=== PATIENT | female | born 1995 | race African-American/Black ===

== ENCOUNTER 2023-11-04 05:23 | Emergency (ER) | payer BC ==
[~2023-11-04] VITALS: Ht 162.6 cm; Wt 70.0 kg
[2023-11-04 06:16] VITALS: PULSE 123; RESP 20; O2SAT 94
[2023-11-04] MEDS: ALBUTEROL SULFATE 2.5 MG/0.5 ML NEB SOLUTION NEB ONE (06:16)
[2023-11-04] MEDS: IPRATROPIUM BROMIDE 0.5 MG/2.5 ML NEB SOLUTION NEB ONE (06:16)
[2023-11-04 06:21] LABS: INFLUENZA A-RTPCR,COMBO NEGATIVE (NEGATIVE); INFLUENZA B-RTPCR,COMBO NEGATIVE (NEGATIVE); RESPIRATORY SYNCYTIAL VRS-PCR NEGATIVE (NEGATIVE); SARS COVID19 RTPCR, COMBO NEGATIVE (NEGATIVE)
[2023-11-04] MEDS: ONDANSETRON HCL 4 MG/2 ML VIAL IVP ONE (06:29)
[2023-11-04] MEDS: MethylPREDNISolone SOD SUCC 125 MG/2 ML VIAL IVP ONE (06:30)
[2023-11-04] MEDS: KETOROLAC TROMETHAMINE 30 MG/ML VIAL IVP ONE (06:30)
[2023-11-04] MEDS: SODIUM CHLORIDE 0.9% 1,000 ML IV ONE (06:30)
[2023-11-04 06:31] VITALS: PULSE 118; RESP 20; O2SAT 99
[2023-11-04 06:32] LABS: BASOPHILS % (AUTO) 0.2 % (0.0-2.0); EOSINOPHILS % (AUTO) 1.4 % (1.0-6.0); HEMATOCRIT 35.4 % (36-46); HEMOGLOBIN 11.9 g/dL (12.0-16.0); LYMPHOCYTES # (AUTO) 0.6 K/uL (1.0-4.8); LYMPHOCYTES % (AUTO) 4.4 % (22.0-44.0); MEAN CORPUSCULAR HEMOGLOBIN 30.6 pg (26.0-34.0); MEAN CORPUSCULAR HGB CONC 33.7 G/dL (31.0-37.0); MEAN CORPUSCULAR VOLUME 91 fL (80-100); MONOCYTES # (AUTO) 0.8 K/uL (0.1-1.0); MONOCYTES % (AUTO) 6.1 % (2.0-9.0); PLATELET COUNT (AUTO) 261 K/uL (150-450); RED CELL DISTRIBUTION WIDTH 14.9 % (11.5-14.5); WHITE BLOOD COUNT (AUTO) 12.5 K/uL (4.5-11.0)
[2023-11-04 06:42] LABS: ANION GAP 15 mmol/L (8-16); CALCIUM, TOTAL 9.2 mg/dL (8.8-10.5); CARBON DIOXIDE 22 mmol/L (22-29); CHLORIDE 102 mmol/L (98-107); CREATININE 1.02 mg/dL (0.60-1.30); GLOMERULAR FILTR. RATE CALC > 60 mL/min (>60); GLUCOSE,RANDOM 100 mg/dL (70-110); POTASSIUM 3.8 mmol/L (3.5-5.1); SODIUM SERUM 139 mmol/L (136-145); UREA NITROGEN, BLOOD 11 mg/dL (7-18)
[2023-11-04 06:51] LABS: TROPONIN I-HIGH SENSITIVITY Less Than 4 ng/L (<51)
[2023-11-04 06:54] LABS: NEUTROPHILS % (AUTO) 87.9 % (40.0-70.0)
[2023-11-04 07:07] LABS: ALANINE AMINOTRANSFERASE 12 U/L (12-78); ALBUMIN 3.9 g/dL (3.4-5.0); ALKALINE PHOSPHATASE 63 U/L (46-116); ASPARTATE AMINOTRANSFERASE 24 U/L (15-37); BILIRUBIN,TOTAL 1.2 mg/dL (0.1-1.0); CREATINE KINASE, TOTAL ONLY 300 U/L (26-192); TOTAL PROTEIN, SERUM 7.9 g/dL (6.4-8.2)
[2023-11-04 08:27] LABS: B-TYPE NATRIURETIC PEPTIDE 8 pg/mL (0-100)
[2023-11-04 08:40] VITALS: BP 117/77; TEMP 98.2
[2023-11-04] MEDS ORDERED: PRED-554 PO (08:40)
[2023-11-04] MEDS: ALBUTEROL SULFATE HFA 90 MCG/PUFF 8 GM INHALER IH ONE (08:51)
[2023-11-04 08:52] VITALS: PULSE 96; RESP 18; O2SAT 96
== END 2023-11-04 09:10 | disposition home or self-care (01) ==
LOC: EMS 05:25
DX: J45.909 Unspecified asthma, uncomplicated (principal); Z20.822 Contact with and (suspected) exposure to COVID-19
CPT/HCPCS: 80053; 82550; 83880; 84484; 84703; 85025; 36415; 94640; 71045; 99285; 93005; 96361; 96374; 96375; 0241U; J3535; J1885; J2930; J2405; J7030; J7613

== ENCOUNTER 2023-11-18 21:22 | Emergency (ER) | payer SELFPAY ==
[~2023-11-18] VITALS: Ht 157.5 cm; Wt 59.1 kg
[~2023-11-18 21:22] MED LIST: PRED-554 PO
[2023-11-18] MEDS ORDERED: ALBU18HF12 PO (21:37)
[2023-11-18] MEDS ORDERED: MONT-40 PO (21:37)
[2023-11-18 22:32] VITALS: PULSE 93; RESP 18; O2SAT 98
[2023-11-18] MEDS: ALBUTEROL SULFATE 2.5 MG/0.5 ML 5 ML NEB SOLUTION NEB ONE (22:32)
[2023-11-18] MEDS: IPRATROPIUM BROMIDE 0.5 MG/2.5 ML NEB SOLUTION NEB ONE (22:32)
[2023-11-18] MEDS: PredniSONE 20 MG TABLET PO ONE (22:58)
[2023-11-18] MEDS: EPINEPHrine 1:1,000 [1 MG/ML] VIAL SQ ONE (23:00)
[2023-11-18 23:11] VITALS: BP 109/74; TEMP 98
[2023-11-18 23:40] VITALS: PULSE 102; RESP 20; O2SAT 99
[2023-11-18] MEDS ORDERED: PRED-554 PO (23:48)
[2023-11-18] MEDS ORDERED: ALBU18HF12 IH (23:48)
== END 2023-11-19 00:02 | disposition home or self-care (01) ==
LOC: EMS 21:36
DX: J45.901 Unspecified asthma with (acute) exacerbation (principal)
CPT/HCPCS: 99285; 71045; 94644; 96372; J0171; J7512; Q9967